=== PATIENT | male | born 1965 | race Caucasian/White ===

== ENCOUNTER → 2017-06-21 | Outpatient (REF) | payer BC ==
[2017-06-21 13:25] LABS: ALBUMIN 3.9 GM/DL (3.2-5.2); ALBUMIN/GLOBULIN RATIO 1.05 (1.00-1.93); ALKALINE PHOSPHATASE 43 U/L (45-117); ALT/SGPT 31 U/L (12-78); ANION GAP 11 MEQ/L (8-16); AST/SGOT 11 U/L (15-37); BILIRUBIN,DIRECT 0.1 MG/DL (0.0-0.2); BILIRUBIN,TOTAL 0.4 MG/DL (0.2-1.0); BLOOD UREA NITROGEN 17 MG/DL (7-18); CALCIUM LEVEL 9.2 MG/DL (8.5-10.1); CARBON DIOXIDE LEVEL 24 MEQ/L (21-32); CHLORIDE LEVEL 106 MEQ/L (98-107); CHOLESTEROL LEVEL 178 MG/DL (<200); CREATININE FOR GFR 1.03 MG/DL (0.70-1.30); GLOMERULAR FILTRATION RATE > 60.0 (>56); GLUCOSE, FASTING 152 MG/DL (70-105); POTASSIUM SERUM 4.2 MEQ/L (3.5-5.1); SODIUM LEVEL 141 MEQ/L (136-145); TOTAL PROTEIN 7.6 GM/DL (6.4-8.2); TRIGLYCERIDES LEVEL 147 MG/DL (<150)
== END ==
LOC: M LABDRAW1 11:42
PROVIDERS: ATTEND Nurse Practitioner Family
DX: E78.2 Mixed hyperlipidemia (principal); I10 Essential (primary) hypertension; E11.9 Type 2 diabetes mellitus without complications

== ENCOUNTER 2017-09-03 13:07 | Day surgery (SDC) | payer BC ==
[~2017-09-03] VITALS: Ht 180.3 cm; Wt 96.2 kg
[~2017-09-03 13:07] MED LIST: ALTA1CAP3 PO; ASPI1TAB PO; FARX1TAB3 PO; METF500T13 PO; ROSU40TA PO
[2017-09-03] MEDS ORDERED: CARV3.12 PO (13:39)
[2017-09-03] MEDS ORDERED: PROPOFOL 200 MG/20 ML VIAL As Ordered ONE (13:58)
[2017-09-03 13:59] VITALS: BP 132/75
[2017-09-03] MEDS ORDERED: NS 1,000 ML IV ONE (14:00)
[2017-09-03] MEDS ORDERED: CARVedilol 3.125 MG TAB PO ONE (14:00)
[2017-09-03] MEDS ORDERED: LIDOCAINE 2% INJ 100 MG/5 ML SDV (FOR ANES.) As Ordered ONE (14:04)
[2017-09-03 15:30] VITALS: BP 124/83
--- NOTE | 2017-09-03 15:31 | ROOR ---
Patient Name: Adam Moura Procedure Date: 09/03/2017 2:38 PM Date of : 1965 Age: 52 Room: [facility] Gender: Male Note Status: Finalized Procedure: Colonoscopy Indications: Hematochezia Providers: Misha Berg MD Referring MD: CARA LAZAR MD Requesting Provider: Medicines: Monitored Anesthesia Care Complications: No immediate complications. Procedure: Pre-Anesthesia Assessment: - Prior to the procedure, a History and Physical was performed, and patient medications and allergies were reviewed. The patient is competent. The risks and benefits of the procedure and the sedation options and risks were discussed with the patient. All questions were answered and informed consent was obtained. Patient identification and proposed procedure were verified by the physician, the nurse and the anesthesiologist in the procedure room. Mental Status Examination: alert and oriented. Airway Examination: normal oropharyngeal airway and neck mobility. Respiratory Examination: clear to auscultation. Prophylactic Antibiotics: The patient does not require prophylactic antibiotics. Prior Anticoagulants: The patient has taken no previous anticoagulant or antiplatelet agents. After reviewing the risks and benefits, the patient was deemed in satisfactory condition to undergo the procedure. The anesthesia plan was to use monitored anesthesia care (MAC). Immediately prior to administration of medications, the patient was re-assessed for adequacy to receive sedatives. The heart rate, respiratory rate, oxygen saturations, blood pressure, adequacy of pulmonary ventilation, and response to care were monitored throughout the procedure. The physical status of the patient was re-assessed after the procedure. The Colonoscope was introduced through the anus and advanced to the terminal ileum, with identification of the appendiceal orifice and IC valve. The colonoscopy was performed without difficulty. The patient tolerated the procedure well. The quality of the bowel preparation was good. The terminal ileum, ileocecal valve, appendiceal orifice, and rectum were photographed. Scope insertion time was 3 minutes. Scope withdrawal time was 9 minutes. The total duration of the procedure was 14 minutes. Findings: The perianal and digital rectal examinations were normal. The terminal ileum appeared normal. A 10 mm polyp was found in the cecum. The polyp was sessile. The polyp was removed with a hot snare. Resection and retrieval were complete. To close a defect after polypectomy, one hemostatic clip was successfully placed. There was no bleeding at the end of the procedure. A 6 mm polyp was found in the ascending colon. The polyp was sessile. The polyp was removed with a cold snare. Resection and retrieval were complete. A 10 mm polyp was found in the transverse colon. The polyp was sessile. The polyp was removed with a hot snare. Resection and retrieval were complete. To close a defect after polypectomy, one hemostatic clip was successfully placed. There was no bleeding at the end of the procedure. Two sessile polyps were found in the descending colon. The polyps were 6 to 8 mm in size. These polyps were removed with a cold biopsy forceps. Resection and retrieval were complete. Non-bleeding external and internal hemorrhoids were found during retroflexion. The hemorrhoids were medium-sized. Impression: - The examined portion of the ileum was normal. - One 10 mm polyp in the cecum, removed with a hot snare. Resected and retrieved. Clip was placed. - One 6 mm polyp in the ascending colon, removed with a cold snare. Resected and retrieved. - One 10 mm polyp in the transverse colon, removed with a hot snare. Resected and retrieved. Clip was placed. - Two 6 to 8 mm polyps in the descending colon, removed with a cold biopsy forceps. Resected and retrieved. - Non-bleeding external and internal hemorrhoids. Recommendation: - Patient has a contact number available for emergencies. The signs and symptoms of potential delayed complications were discussed with the patient. Return to normal activities tomorrow. Written discharge instructions were provided to the patient. - Resume previous diet. - Continue present medications. - Await pathology results. - Repeat colonoscopy in 3 - 5 years for surveillance based on pathology results. - Return to GI clinic as previously scheduled on 09/11/2017 at 8:30 AM. - Return to primary care physician. Misha Berg MD Misha Berg MD 09/03/2017 3:31:39 PM This report has been signed electronically. Number of Addenda: 0 Note Initiated On: 09/03/2017 2:38 PM Estimated Blood Loss: Estimated blood loss was minimal.
== END 2017-09-03 16:06 | disposition home or self-care (01) ==
LOC: M OPP 13:07
PROVIDERS: ATTEND Internal Medicine Gastroenterology
DX: K92.1 Melena (principal); D12.0 Benign neoplasm of cecum; D12.2 Benign neoplasm of ascending colon; D12.3 Benign neoplasm of transverse colon; D12.4 Benign neoplasm of descending colon; K64.8 Other hemorrhoids; K64.4 Residual hemorrhoidal skin tags; I25.10 Atherosclerotic heart disease of native coronary artery without angina pectoris; Z95.5 Presence of coronary angioplasty implant and graft; I25.2 Old myocardial infarction; I10 Essential (primary) hypertension; E78.5 Hyperlipidemia, unspecified; E11.9 Type 2 diabetes mellitus without complications; R06.83 Snoring; F17.210 Nicotine dependence, cigarettes, uncomplicated; Z79.82 Long term (current) use of aspirin; Z79.899 Other long term (current) drug therapy; Z79.84 Long term (current) use of oral hypoglycemic drugs; Z80.41 Family history of malignant neoplasm of ovary

== ENCOUNTER 2018-04-19 19:17 | Emergency (ER) | payer BC ==
[2018-04-19 19:39] LABS: BEDSIDE GLUCOSE 214 MG/DL (70-105)
[2018-04-19 19:53] LABS: BASO # 0.1 10^3/uL (0.0-0.2); BASO % 0.9 % (0.0-1.0); EOS # 0.4 10^3/uL (0.0-0.50); HEMOGLOBIN 16.2 g/dl (13.5-17.5); IMMATURE GRANULOCYTE % 0.2 % (0-3.0); LYMPH # 3.4 10^3/uL (1.5-4.5); LYMPH % 38.8 % (24.0-44.0); MEAN CORPUSCULAR HEMOGLOBIN 29.9 pg (27.0-33.0); MEAN CORPUSCULAR HGB CONC 34.5 g/dl (32.0-36.5); MEAN CORPUSCULAR VOLUME 86.7 fl (80.0-96.0); MONO # 0.6 10^3/uL (0.0-0.8); MONO % 6.7 % (0.0-5.0); NEUTROPHILS # 4.4 10^3/uL (1.8-7.7); NEUTROPHILS % 49.4 % (36.0-66.0); PLATELET COUNT, AUTOMATED 236 10^3/uL (150-450); RED BLOOD COUNT 5.42 10^6/uL (4.30-6.10); RED CELL DISTRIBUTION WIDTH 12.9 % (11.5-14.5); WHITE BLOOD COUNT 8.8 10^3/uL (4.0-10.0)
[2018-04-19] MEDS: NITROGLYCERIN 0.4 MG SUBL TABLET SL ×2 (19:57→20:07)
[2018-04-19] MEDS: ASPIRIN 81 MG CHEW TABLET PO (19:57)
[2018-04-19 20:17] LABS: ALBUMIN 3.9 GM/DL (3.2-5.2); ALBUMIN/GLOBULIN RATIO 0.98 (1.00-1.93); ALKALINE PHOSPHATASE 49 U/L (45-117); ALT/SGPT 27 U/L (12-78); ANION GAP 10 MEQ/L (8-16); AST/SGOT 14 U/L (7-37); BILIRUBIN,DIRECT 0.1 MG/DL (0.0-0.2); BILIRUBIN,TOTAL 0.4 MG/DL (0.2-1.0); BLOOD UREA NITROGEN 16 MG/DL (7-18); CALCIUM LEVEL 8.9 MG/DL (8.5-10.1); CARBON DIOXIDE LEVEL 25 MEQ/L (21-32); CHLORIDE LEVEL 105 MEQ/L (98-107); CPK CREATINE PHOSPHOKINASE 113 U/L (39-308); CREATININE FOR GFR 1.32 MG/DL (0.70-1.30); GLOMERULAR FILTRATION RATE > 60.0 (>56); GLUCOSE, FASTING 200 MG/DL (70-100); SODIUM LEVEL 140 MEQ/L (136-145); TOTAL PROTEIN 7.9 GM/DL (6.4-8.2)
[2018-04-19 20:23] LABS: CK-MB VALUE MASS 1.5 NG/ML (<3.6); FREE T4 0.86 NG/DL (0.76-1.46); MB/CK RELATIVE INDEX 1.32 (< OR =4); NT-PRO BNP 335 PG/ML (<125)
[2018-04-19 20:26] LABS: INR 0.98; PARTIAL THROMBOPLASTIN TIME 30.8 SECONDS (25.4-37.6); PROTHROMBIN TIME 13.1 SECONDS (12.1-14.4)
[2018-04-19 20:29] LABS: D-DIMER QUANT 634.3 ng/ml (<500)
[2018-04-19] MEDS ORDERED: HEPARIN SOD (PORCINE) 5000 UNITS/ML VIAL IV (20:30)
[2018-04-19] MEDS ORDERED: ISOVUE-370 76% 100ML VIAL (Q9967) As Ordered (20:37)
[2018-04-19] MEDS: CLOPIDOGREL 300 MG TAB (PLAVIX) PO (20:43)
[2018-04-19] MEDS: HEPARIN SOD (PORCINE) 5000 UNITS/ML VIAL IV (20:44)
[2018-04-19] MEDS: HEPARIN DRIP 25,000 UNITS in APPROPRIATE DILUENT 1 EA IV (20:50)
== END 2018-04-19 22:17 | disposition short-term general hospital (02) ==
LOC: M ED 19:17
DX: I21.4 Non-ST elevation (NSTEMI) myocardial infarction (principal); I25.10 Atherosclerotic heart disease of native coronary artery without angina pectoris; I10 Essential (primary) hypertension; E11.9 Type 2 diabetes mellitus without complications; Z95.5 Presence of coronary angioplasty implant and graft; Z72.0 Tobacco use; Z79.82 Long term (current) use of aspirin; Z79.84 Long term (current) use of oral hypoglycemic drugs; Z79.899 Other long term (current) drug therapy
CPT/HCPCS: Q9967

== ENCOUNTER → 2018-08-26 | Outpatient (CLI) | payer BC ==
[2018-08-26 09:10] LABS: HEMATOCRIT 45.2 % (42.0-52.0); HEMOGLOBIN 14.8 g/dl (13.5-17.5); MEAN CORPUSCULAR HEMOGLOBIN 29.5 pg (27.0-33.0); MEAN CORPUSCULAR HGB CONC 32.7 g/dl (32.0-36.5); MEAN CORPUSCULAR VOLUME 90.2 fl (80.0-96.0); PLATELET COUNT, AUTOMATED 194 10^3/uL (150-450); RED BLOOD COUNT 5.01 10^6/uL (4.30-6.10); WHITE BLOOD COUNT 6.5 10^3/uL (4.0-10.0)
[2018-08-26 09:42] LABS: ALBUMIN/GLOBULIN RATIO 1.11 (1.00-1.93); ALKALINE PHOSPHATASE 40 U/L (45-117); ALT/SGPT 37 U/L (12-78); ANION GAP 5 MEQ/L (8-16); AST/SGOT 15 U/L (7-37); BILIRUBIN,TOTAL 0.3 MG/DL (0.2-1.0); BLOOD UREA NITROGEN 19 MG/DL (7-18); CALCIUM LEVEL 9.1 MG/DL (8.5-10.1); CARBON DIOXIDE LEVEL 28 MEQ/L (21-32); CHLORIDE LEVEL 106 MEQ/L (98-107); CHOLESTEROL LEVEL 146 MG/DL (<200); CHOLESTEROL RISK RATIO 4.294 (<5); CREATININE FOR GFR 1.15 MG/DL (0.70-1.30); GLOMERULAR FILTRATION RATE > 60.0 (>56); GLUCOSE, FASTING 190 MG/DL (70-100); HDL CHOLESTEROL 34 MG/DL (>40); LDL CHOLESTEROL 76 MG/DL (<100); NON-HDL-C 112 MG/DL; POTASSIUM SERUM 4.8 MEQ/L (3.5-5.1); PROSTATIC SPECIFIC AG MONITOR 0.4 NG/ML (< 4.0); SODIUM LEVEL 139 MEQ/L (136-145); TOTAL PROTEIN 7.6 GM/DL (6.4-8.2); TRIGLYCERIDES LEVEL 178 MG/DL (<150)
[2018-08-26 09:47] LABS: TOTAL 25(OH) VITAMIN D 40.3 NG/ML (30.0-100.0)
[2018-08-26 11:27] LABS: TESTOSTERONE 323 NG/DL (241-827)
[2018-08-26 12:08] LABS: ESTIMATED AVERAGE GLUCOSE 183 MG/DL (60-110)
== END ==
LOC: M LAB 08:06
DX: I10 Essential (primary) hypertension (principal); R53.83 Other fatigue; N40.0 Benign prostatic hyperplasia without lower urinary tract symptoms
CPT/HCPCS: 71046

== ENCOUNTER → 2018-12-30 | Outpatient (REF) | payer BC ==
[~2018-12-30] MED LIST changes: +CARV3.12 PO; -ROSU40TA PO; +ROSU40TA3 PO
[2018-12-30 11:51] LABS: HEMATOCRIT 45.6 % (42.0-52.0); HEMOGLOBIN 14.9 g/dl (13.5-17.5); MEAN CORPUSCULAR HEMOGLOBIN 29.9 pg (27.0-33.0); MEAN CORPUSCULAR HGB CONC 32.7 g/dl (32.0-36.5); MEAN CORPUSCULAR VOLUME 91.4 fl (80.0-96.0); PLATELET COUNT, AUTOMATED 220 10^3/uL (150-450); RED BLOOD COUNT 4.99 10^6/uL (4.30-6.10); WHITE BLOOD COUNT 7.4 10^3/uL (4.0-10.0)
[2018-12-30 12:17] LABS: ALBUMIN 4.2 GM/DL (3.2-5.2); ALT/SGPT 41 U/L (12-78); BILIRUBIN,TOTAL 0.4 MG/DL (0.2-1.0); BLOOD UREA NITROGEN 15 MG/DL (7-18); CALCIUM LEVEL 8.6 MG/DL (8.5-10.1); CARBON DIOXIDE LEVEL 23 MEQ/L (21-32); CHLORIDE LEVEL 108 MEQ/L (98-107); CHOLESTEROL LEVEL 136 MG/DL (<200); CHOLESTEROL RISK RATIO 4.533 (<5); GLOMERULAR FILTRATION RATE > 60.0 (>56); GLUCOSE, FASTING 216 MG/DL (70-100); HDL CHOLESTEROL 30 MG/DL (>40); LDL CHOLESTEROL 42 MG/DL (<100); NON-HDL-C 106 MG/DL; POTASSIUM SERUM 4.3 MEQ/L (3.5-5.1); SODIUM LEVEL 139 MEQ/L (136-145); TESTOSTERONE 219 NG/DL (241-827); TOTAL PROTEIN 7.7 GM/DL (6.4-8.2); TRIGLYCERIDES LEVEL 321 MG/DL (<150)
[2018-12-30 13:01] LABS: HEMOGLOBIN A1c 8.7 %
== END ==
LOC: M LABDRAW1 09:19
PROVIDERS: ATTEND Family Medicine
DX: R53.83 Other fatigue (principal); I10 Essential (primary) hypertension; E11.9 Type 2 diabetes mellitus without complications

== ENCOUNTER → 2019-02-04 | Outpatient (REF) | payer BC ==
[~2019-02-04] MED LIST changes: -ASPI1TAB PO; +ASPI81TA26 PO
[2019-02-04 10:54] LABS: HEMATOCRIT 46.2 % (42.0-52.0); HEMOGLOBIN 15.1 g/dl (13.5-17.5); MEAN CORPUSCULAR HEMOGLOBIN 29.8 pg (27.0-33.0); MEAN CORPUSCULAR HGB CONC 32.7 g/dl (32.0-36.5); MEAN CORPUSCULAR VOLUME 91.3 fl (80.0-96.0); PLATELET COUNT, AUTOMATED 199 10^3/uL (150-450); RED BLOOD COUNT 5.06 10^6/uL (4.30-6.10); WHITE BLOOD COUNT 6.8 10^3/uL (4.0-10.0)
[2019-02-04 11:14] LABS: HEMOGLOBIN A1c 8.6 %
[2019-02-04 11:24] LABS: ALBUMIN 4.2 GM/DL (3.2-5.2); ALT/SGPT 39 U/L (12-78); BILIRUBIN,TOTAL 0.5 MG/DL (0.2-1.0); BLOOD UREA NITROGEN 15 MG/DL (7-18); CALCIUM LEVEL 9.1 MG/DL (8.5-10.1); CARBON DIOXIDE LEVEL 26 MEQ/L (21-32); CHLORIDE LEVEL 107 MEQ/L (98-107); CHOLESTEROL LEVEL 121 MG/DL (<200); CHOLESTEROL RISK RATIO 3.781 (<5); CREATININE FOR GFR 1.06 MG/DL (0.70-1.30); GLOMERULAR FILTRATION RATE > 60.0 (>56); GLUCOSE, FASTING 159 MG/DL (70-100); HDL CHOLESTEROL 32 MG/DL (>40); LDL CHOLESTEROL 63 MG/DL (<100); NON-HDL-C 89 MG/DL; POTASSIUM SERUM 4.4 MEQ/L (3.5-5.1); PROSTATIC SPECIFIC AG MONITOR 0.35 NG/ML (< 4.00); SODIUM LEVEL 140 MEQ/L (136-145); TESTOSTERONE 317 NG/DL (241-827); TOTAL PROTEIN 7.7 GM/DL (6.4-8.2); TRIGLYCERIDES LEVEL 128 MG/DL (<150)
[2019-02-04 11:25] LABS: TOTAL T3 85.6 NG/DL (60.0-181.0)
== END ==
LOC: M LABDRAW1 10:07
PROVIDERS: ATTEND Family Medicine
DX: I10 Essential (primary) hypertension (principal); E29.1 Testicular hypofunction

== ENCOUNTER → 2019-02-11 | Outpatient (REF) | payer BC | LOC: M LABDRAW1 12:01 | PROVIDERS: ATTEND Family Medicine | DX: E03.9 Hypothyroidism, unspecified (principal) ==

== ENCOUNTER → 2019-06-11 | Outpatient (REF) | payer BC ==
[~2019-06-11] MED LIST changes: -ROSU40TA3 PO; +ROSU40TA4 PO
[2019-06-11 13:13] LABS: PROSTATIC SPECIFIC AG MONITOR 0.4 NG/ML (< 4.00); THYROID STIMULATING HORMONE 2.15 uIU/ML (0.358-3.740); THYROXINE (T4) 7.2 UG/DL (4.5-12.0)
[2019-06-11 13:15] LABS: HEMOGLOBIN A1c 7.9 %
[2019-06-11 13:37] LABS: TOTAL T3 88.2 NG/DL (60.0-181.0)
== END ==
LOC: M LABDRAW1 11:55
PROVIDERS: ATTEND Family Medicine
DX: I10 Essential (primary) hypertension (principal); E03.9 Hypothyroidism, unspecified; R53.83 Other fatigue

== ENCOUNTER → 2019-12-16 | Outpatient (REF) | payer BC ==
[2019-12-16 10:18] LABS: HEMATOCRIT 47.9 % (42.0-52.0); MEAN CORPUSCULAR HGB CONC 33.4 g/dl (32.0-36.5); MEAN CORPUSCULAR VOLUME 89.9 fl (80.0-96.0); PLATELET COUNT, AUTOMATED 216 10^3/uL (150-450); RED BLOOD COUNT 5.33 10^6/uL (4.30-6.10); WHITE BLOOD COUNT 6.6 10^3/uL (4.0-10.0)
[2019-12-16 10:33] LABS: ALT/SGPT 46 U/L (12-78); BILIRUBIN,TOTAL 0.7 MG/DL (0.2-1.0); BLOOD UREA NITROGEN 14 MG/DL (7-18); CALCIUM LEVEL 8.9 MG/DL (8.5-10.1); CARBON DIOXIDE LEVEL 27 MEQ/L (21-32); CHLORIDE LEVEL 105 MEQ/L (98-107); CHOLESTEROL LEVEL 126 MG/DL (<200); CHOLESTEROL RISK RATIO 4.064 (<5); CREATININE FOR GFR 1.06 MG/DL (0.70-1.30); GLOMERULAR FILTRATION RATE > 60.0 (>56); GLUCOSE, FASTING 185 MG/DL (70-100); HDL CHOLESTEROL 31 MG/DL (>40); LDL CHOLESTEROL 58 MG/DL (<100); NON-HDL-C 95 MG/DL; POTASSIUM SERUM 4.2 MEQ/L (3.5-5.1); PROSTATIC SPECIFIC AG MONITOR 0.43 NG/ML (< 4.00); SODIUM LEVEL 138 MEQ/L (136-145); TESTOSTERONE 297 NG/DL (241-827); TOTAL PROTEIN 7.4 GM/DL (6.4-8.2); TRIGLYCERIDES LEVEL 184 MG/DL (<150)
== END ==
LOC: M LABDRAW1 08:09
PROVIDERS: ATTEND Family Medicine
DX: I10 Essential (primary) hypertension (principal); R53.83 Other fatigue; N40.0 Benign prostatic hyperplasia without lower urinary tract symptoms

== ENCOUNTER → 2020-06-24 | Outpatient (CLI) | payer BC ==
[2020-06-24 11:15] LABS: HEMOGLOBIN A1c 7.5 %
[2020-06-24 11:46] LABS: THYROID STIMULATING HORMONE 0.509 uIU/ML (0.358-3.740)
== END ==
LOC: M PLALAB 08:01
PROVIDERS: ATTEND Family Medicine
DX: I10 Essential (primary) hypertension (principal); E11.9 Type 2 diabetes mellitus without complications; E29.1 Testicular hypofunction

== ENCOUNTER 2020-09-20 17:04 | Emergency (ER) | payer BC ==
[~2020-09-20] VITALS: Ht 177.8 cm; Wt 97.5 kg
[2020-09-20] MEDS ORDERED: CLOP75TA2 (17:17)
[2020-09-20] MEDS ORDERED: ASPIRIN 81 MG CHEW TABLET PO ONE (17:30)
[2020-09-20] MEDS ORDERED: HEPARIN DRIP 25,000 UNITS in IV 1 EA IV SCH (17:35)
[2020-09-20] MEDS ORDERED: HEPARIN SOD (PORCINE) 5000UNITS/ML 1ML VIAL/SYRINGE IV ONE (17:45)
[2020-09-20 17:54] LABS: BASO % 0.6 % (0.0-1.0); BLOOD UREA NITROGEN 14 MG/DL (7-18); CALCIUM LEVEL 8.8 MG/DL (8.5-10.1); CARBON DIOXIDE LEVEL 28 MEQ/L (21-32); CHLORIDE LEVEL 104 MEQ/L (98-107); CREATININE FOR GFR 1.08 MG/DL (0.70-1.30); EOS # 0.3 10^3/uL (0.0-0.5); GLOMERULAR FILTRATION RATE > 60.0 (>56); GLUCOSE, FASTING 277 MG/DL (70-100); HEMATOCRIT 44.2 % (42.0-52.0); HEMOGLOBIN 14.2 g/dl (13.5-17.5); LYMPH # 2.6 10^3/uL (1.5-5.0); LYMPH % 37.6 % (24.0-44.0); MEAN CORPUSCULAR HEMOGLOBIN 28.3 pg (27.0-33.0); MEAN CORPUSCULAR HGB CONC 32.1 g/dl (32.0-36.5); MEAN CORPUSCULAR VOLUME 88.2 fl (80.0-96.0); MONO # 0.6 10^3/uL (0.0-0.8); MONO % 8.6 % (0.0-5.0); NEUTROPHILS # 3.3 10^3/uL (1.5-8.5); NEUTROPHILS % 48.9 % (36.0-66.0); PLATELET COUNT, AUTOMATED 211 10^3/uL (150-450); RED BLOOD COUNT 5.01 10^6/uL (4.30-6.10); SODIUM LEVEL 138 MEQ/L (136-145); WHITE BLOOD COUNT 6.8 10^3/uL (4.0-10.0)
[2020-09-20 18:06] LABS: INR 0.94; PARTIAL THROMBOPLASTIN TIME 29.2 SECONDS (24.2-38.5); PROTHROMBIN TIME 12.8 SECONDS (12.5-14.3)
[2020-09-20 18:13] LABS: CK-MB VALUE MASS 5.6 NG/ML (<3.6); CPK CREATINE PHOSPHOKINASE 129 U/L (39-308); MB/CK RELATIVE INDEX 4.34 (< OR =4)
--- NOTE | 2020-09-20 18:32 | REP ---
INDICATION: CHEST PAIN. COMPARISON: Comparison chest x-ray August 26, 2018. TECHNIQUE: Portable upright AP chest radiograph. FINDINGS: Heart size is borderline. The lungs are symmetrically aerated and free of infiltrate. Pulmonary vasculature is not increased. The pleural angles are sharp. Monitoring electrodes are seen.. No significant bony abnormality is appreciated. IMPRESSION: Borderline heart size. Otherwise no acute disease.. <Electronically signed by Donald Khan > 09/20/20 [id number]
[2020-09-20 20:36] VITALS: BP 125/63
--- NOTE | 2020-09-21 05:55 | ECGEPIP ---
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
== END 2020-09-20 20:40 | disposition short-term general hospital (02) ==
LOC: M ED 17:04
DX: I21.4 Non-ST elevation (NSTEMI) myocardial infarction (principal); R00.1 Bradycardia, unspecified; I25.10 Atherosclerotic heart disease of native coronary artery without angina pectoris; E11.9 Type 2 diabetes mellitus without complications; I10 Essential (primary) hypertension; E78.5 Hyperlipidemia, unspecified; Z95.5 Presence of coronary angioplasty implant and graft; F17.200 Nicotine dependence, unspecified, uncomplicated; F17.290 Nicotine dependence, other tobacco product, uncomplicated; Z82.49 Family history of ischemic heart disease and other diseases of the circulatory system; Z79.82 Long term (current) use of aspirin; Z79.84 Long term (current) use of oral hypoglycemic drugs; Z79.899 Other long term (current) drug therapy
CPT/HCPCS: 71045; 80048; 82550; 82553; 84484; 85025; 85610; 85730; 87631; 93005; 93041; 94760; 99285; J1644

== ENCOUNTER → 2020-11-15 | Outpatient (CLI) | payer BC ==
[~2020-11-15] MED LIST changes: +CLOP75TA2
[2020-11-15 11:01] LABS: BASO # 0.1 10^3/uL (0.0-0.2); EOS # 0.4 10^3/uL (0.0-0.5); EOS % 5.8 % (0.0-3.0); HEMATOCRIT 42.6 % (42.0-52.0); HEMOGLOBIN 13.4 g/dl (13.5-17.5); LYMPH # 2.3 10^3/uL (1.5-5.0); LYMPH % 32.8 % (24.0-44.0); MEAN CORPUSCULAR HEMOGLOBIN 27.6 pg (27.0-33.0); MEAN CORPUSCULAR HGB CONC 31.5 g/dl (32.0-36.5); MEAN CORPUSCULAR VOLUME 87.7 fl (80.0-96.0); MONO # 0.5 10^3/uL (0.0-0.8); MONO % 7.4 % (0.0-5.0); NEUTROPHILS # 3.7 10^3/uL (1.5-8.5); NEUTROPHILS % 52.7 % (36.0-66.0); PLATELET COUNT, AUTOMATED 220 10^3/uL (150-450); RED BLOOD COUNT 4.86 10^6/uL (4.30-6.10)
[2020-11-15 11:59] LABS: CREATININE FOR GFR 1.38 MG/DL (0.70-1.30); GLOMERULAR FILTRATION RATE 57.2 (>56); POTASSIUM SERUM 4.5 MEQ/L (3.5-5.1)
[2020-11-15 12:00] LABS: ALBUMIN 3.9 GM/DL (3.2-5.2); BILIRUBIN,TOTAL 0.4 MG/DL (0.2-1.0); CALCIUM LEVEL 9.1 MG/DL (8.5-10.1); CHOLESTEROL RISK RATIO 3.5 (<5); TOTAL PROTEIN 7.6 GM/DL (6.4-8.2)
== END ==
LOC: M LAB 09:51
PROVIDERS: ATTEND Physician Assistant
DX: E78.2 Mixed hyperlipidemia (principal); I10 Essential (primary) hypertension

== ENCOUNTER → 2020-12-08 | Outpatient (CLI) | payer BC ==
[2020-12-08 10:22] LABS: CREATININE FOR GFR 1.34 MG/DL (0.70-1.30); GLOMERULAR FILTRATION RATE 59.1 (>56)
== END ==
LOC: M LAB 08:50
PROVIDERS: ATTEND Surgery Vascular Surgery
DX: I70.213 Atherosclerosis of native arteries of extremities with intermittent claudication, bilateral legs (principal)

== ENCOUNTER → 2020-12-08 | Outpatient (CLI) | payer BC ==
[2020-12-08 09:54] LABS: HEMATOCRIT 46.2 % (42.0-52.0); HEMOGLOBIN 14.9 g/dl (13.5-17.5); MEAN CORPUSCULAR HEMOGLOBIN 28.3 pg (27.0-33.0); MEAN CORPUSCULAR HGB CONC 32.3 g/dl (32.0-36.5); MEAN CORPUSCULAR VOLUME 87.8 fl (80.0-96.0); PLATELET COUNT, AUTOMATED 216 10^3/uL (150-450); RED BLOOD COUNT 5.26 10^6/uL (4.30-6.10); WHITE BLOOD COUNT 6.4 10^3/uL (4.0-10.0)
[2020-12-08 10:36] LABS: ALBUMIN 4.4 GM/DL (3.2-5.2); ALT/SGPT 33 U/L (12-78); BILIRUBIN,TOTAL 0.3 MG/DL (0.2-1.0); BLOOD UREA NITROGEN 19 MG/DL (7-18); CARBON DIOXIDE LEVEL 27 MEQ/L (21-32); CHLORIDE LEVEL 107 MEQ/L (98-107); CREATININE FOR GFR 1.32 MG/DL (0.70-1.30); GLOMERULAR FILTRATION RATE > 60.0 (>56); GLUCOSE, FASTING 162 MG/DL (70-100); POTASSIUM SERUM 4.6 MEQ/L (3.5-5.1); PROSTATIC SPECIFIC AG MONITOR 0.48 NG/ML (< 4.00); SODIUM LEVEL 140 MEQ/L (136-145); TESTOSTERONE 233 NG/DL (241-827); THYROID STIMULATING HORMONE 0.665 uIU/ML (0.358-3.740); TOTAL 25(OH) VITAMIN D 26.6 NG/ML (30.0-100.0); TOTAL PROTEIN 8.3 GM/DL (6.4-8.2)
== END ==
LOC: M LAB 08:52
PROVIDERS: ATTEND Family Medicine
DX: R53.83 Other fatigue (principal); I10 Essential (primary) hypertension; E11.9 Type 2 diabetes mellitus without complications; N40.0 Benign prostatic hyperplasia without lower urinary tract symptoms

== ENCOUNTER → 2020-12-08 | Outpatient (CLI) | payer BC ==
[2020-12-08 09:54] LABS: BASO # 0.1 10^3/uL (0.0-0.2); BASO % 0.9 % (0.0-1.0); EOS # 0.3 10^3/uL (0.0-0.5); EOS % 4.9 % (0.0-3.0); HEMATOCRIT 45.7 % (42.0-52.0); HEMOGLOBIN 14.5 g/dl (13.5-17.5); LYMPH # 2.3 10^3/uL (1.5-5.0); LYMPH % 36.2 % (24.0-44.0); MEAN CORPUSCULAR HEMOGLOBIN 27.6 pg (27.0-33.0); MEAN CORPUSCULAR HGB CONC 31.7 g/dl (32.0-36.5); MEAN CORPUSCULAR VOLUME 86.9 fl (80.0-96.0); MONO # 0.5 10^3/uL (0.0-0.8); MONO % 7.1 % (2.0-8.0); NEUTROPHILS # 3.3 10^3/uL (1.5-8.5); NEUTROPHILS % 50.6 % (36.0-66.0); PLATELET COUNT, AUTOMATED 228 10^3/uL (150-450); RED BLOOD COUNT 5.26 10^6/uL (4.30-6.10); WHITE BLOOD COUNT 6.5 10^3/uL (4.0-10.0)
[2020-12-08 10:34] LABS: ALBUMIN 4.5 GM/DL (3.2-5.2); ALT/SGPT 32 U/L (12-78); BILIRUBIN,TOTAL 0.3 MG/DL (0.2-1.0); BLOOD UREA NITROGEN 20 MG/DL (7-18); CARBON DIOXIDE LEVEL 27 MEQ/L (21-32); CHLORIDE LEVEL 107 MEQ/L (98-107); CREATININE FOR GFR 1.28 MG/DL (0.70-1.30); GLOMERULAR FILTRATION RATE > 60.0 (>56); GLUCOSE, FASTING 165 MG/DL (70-100); NT-PRO BNP 123 PG/ML (<125); POTASSIUM SERUM 4.7 MEQ/L (3.5-5.1); SODIUM LEVEL 139 MEQ/L (136-145); TOTAL PROTEIN 8.2 GM/DL (6.4-8.2)
== END ==
LOC: M LAB 08:47
PROVIDERS: ATTEND Physician Assistant
DX: R06.83 Snoring (principal)
CPT/HCPCS: 80053; 83880; 85027; G0399

== ENCOUNTER → 2020-12-17 | Outpatient (CLI) | payer BC ==
[~2020-12-17] MED LIST changes: +ISOVUE-370 76% 100ML VIAL As Ordered ONE
--- NOTE | 2020-12-17 10:26 | REP ---
INDICATION: ATHEROSCLEROSIS, AAA CT 1ST US 2ND COMPARISON: None. TECHNIQUE: CT angiogram of the abdomen and pelvis was performed with intravenous administration of 100 cc of Isovue 370, without oral contrast. 3D MIP reconstruction images performed. FINDINGS: Abdominal aorta: There is an infrarenal aneurysm of the distal abdominal aorta measuring 4.5 x 4.7 cm, with a craniocaudal length of approximately 6.5 cm. It terminates at the aortic bifurcation. The superior aspect is approximately 5.5 cm from the lowest main renal artery on the left. At the origin of the aneurysm superiorly with the AP diameter is 3.0 cm, there is moderate circumferential soft plaque, the patent lumen centrally measures 1.5 cm in diameter. Relatively mild amount of soft plaque is seen circumferentially at the widest point of the aneurysm. Bilateral common iliac artery stents are present. On the right patent flow is seen throughout the stent. There is mild partially calcified plaquing in the distal right common iliac artery with no stenosis. There is mild diffuse plaquing and narrowing of the right external iliac artery. The right common femoral artery demonstrates mild diffuse plaquing and narrowing. There is occlusion of the proximal right superficial femoral artery with a patent right profunda. On the left the common iliac artery stent demonstrates a focal moderate amount of plaque in the distal aspect with moderate stenosis. The distal left common iliac artery is ectatic measuring 1.7 cm in diameter. There is a patent stent in the proximal left external iliac artery. The more distal left external iliac artery demonstrates mild diffuse plaquing and narrowing as does the left common femoral artery. There is occlusion of the proximal left superficial femoral artery, the left profunda is patent. The celiac and superior mesenteric arteries are patent with no significant stenosis. The inferior mesenteric artery is occluded. There is no evidence of renal artery stenosis bilaterally. Lung bases: Unremarkable. Liver: There is diffuse fatty infiltration of the liver. There is a hepatomegaly with the length of the liver 20.7 cm. Gallbladder: Unremarkable. Spleen: Normal. Adrenals: Normal. Pancreas: Normal. Kidneys: An exophytic 1.8 cm cyst is noted of the mid left kidney. Small and large bowel: Unremarkable. Free fluid: None. Adenopathy: None. Appendix: Not inflamed. Pelvis: No mass. Osseous structures: There are degenerative changes of the spine without compression deformity.. IMPRESSION: Infrarenal distal abdominal aortic aneurysm 4.5 x 4.7 cm, craniocaudal length approximately 6.5 cm as discussed in detail above. 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 Moderate focal stenosis in the distal aspect of the left common iliac artery stent. Occlusion inferior mesenteric artery. <Electronically signed by Naif Lind > 12/17/20 1022
--- NOTE | 2020-12-17 10:57 | REP ---
INDICATION: ATHEROSCLEROSIS, AAA CT 1ST US 2ND COMPARISON: None. TECHNIQUE: Real time lind scale and Duplex Doppler evaluation of the bilateral lower extremity arterial vasculature using linear high frequency transducer. FINDINGS: Lind scale and duplex doppler images demonstrate bilateral common iliac artery stents which are patent. There is a left external iliac artery stent which is patent. There is occlusion of the proximal superficial femoral arteries bilaterally. Distal superficial femoral arteries demonstrate revascularization bilaterally. Proximal right popliteal artery is severely stenotic as is the proximal anterior tibial artery, with trickle flow within. There is reversal of flow in the distal right anterior tibial artery. Right posterior tibial artery is the only vascular supply to the right foot. On the left the anterior and posterior tibial arteries appear to supply the foot. There are diffuse monophasic waveforms bilaterally. KYLE right 0.76, left 0.69. Peak systolic velocities (cm/sec) Distal abdominal aorta: 130 Common iliac artery: Right 89; left 95 External iliac artery: Right 68; left 118 Common femoral artery: Right 129; Left 101 Profunda femoris: Right 207; Left 82 SFA (proximal): Right occluded; Left trickle flow/occluded SFA (mid): Right trickle flow 15; Left occluded SFA (distal): Right 46; Left 19 Popliteal artery: Right 24; Left 22 PORTILLO (prox.): Right 8; Left 35 Tibioperoneal trunk: Right 32; Left 24 DRAWING FRAME TENDER (prox.): Right 35; Left 548 DRAWING FRAME TENDER (distal): Right 45; Left 34 PORTILLO (distal): Right 5, reversed; Left 23 IMPRESSION: Occlusion of proximal superficial femoral arteries bilaterally with reconstitution of the bilateral distal superficial femoral arteries. Severe stenosis proximal right popliteal artery. Severe stenosis proximal right anterior tibial artery, with reversal of flow in the distal anterior tibial artery. <Electronically signed by Naif Lind > 12/17/20 0713
== END ==
LOC: M RAD 08:30
PROVIDERS: ATTEND Surgery Vascular Surgery
DX: I70.213 Atherosclerosis of native arteries of extremities with intermittent claudication, bilateral legs (principal); I71.4 Abdominal aortic aneurysm, without rupture
CPT/HCPCS: 74174; 93925; 93979; Q9967

== ENCOUNTER → 2021-02-07 | Outpatient (CLI) | payer BC ==
[~2021-02-07] MED LIST changes: +ALPR0.5T3 PO; -ISOVUE-370 76% 100ML VIAL As Ordered ONE; +LEVO112T2 PO; +LISI-898 PO
[2021-02-07 09:43] LABS: HEMATOCRIT 47.9 % (42.0-52.0); HEMOGLOBIN 15.1 g/dl (13.5-17.5); MEAN CORPUSCULAR HEMOGLOBIN 28.3 pg (27.0-33.0); MEAN CORPUSCULAR HGB CONC 31.5 g/dl (32.0-36.5); MEAN CORPUSCULAR VOLUME 89.9 fl (80.0-96.0); PLATELET COUNT, AUTOMATED 198 10^3/uL (150-450); RED BLOOD COUNT 5.33 10^6/uL (4.30-6.10); WHITE BLOOD COUNT 5.9 10^3/uL (4.0-10.0)
[2021-02-07 11:12] LABS: ALBUMIN 4.2 GM/DL (3.2-5.2); ALT/SGPT 36 U/L (12-78); BILIRUBIN,TOTAL 0.5 MG/DL (0.2-1.0); BLOOD UREA NITROGEN 15 MG/DL (7-18); CALCIUM LEVEL 9.6 MG/DL (8.5-10.1); CARBON DIOXIDE LEVEL 25 MEQ/L (21-32); CHLORIDE LEVEL 106 MEQ/L (98-107); CHOLESTEROL LEVEL 127 MG/DL (<200); CHOLESTEROL RISK RATIO 3.432 (<5); CREATININE FOR GFR 1.04 MG/DL (0.70-1.30); GLOMERULAR FILTRATION RATE > 60.0 (>56); GLUCOSE, FASTING 191 MG/DL (70-100); HDL CHOLESTEROL 37 MG/DL (>40); LDL CHOLESTEROL 51 MG/DL (<100); NON-HDL-C 90 MG/DL; POTASSIUM SERUM 4.5 MEQ/L (3.5-5.1); SODIUM LEVEL 140 MEQ/L (136-145); THYROID STIMULATING HORMONE 0.465 uIU/ML (0.358-3.740); TOTAL PROTEIN 8.1 GM/DL (6.4-8.2); TRIGLYCERIDES LEVEL 195 MG/DL (<150)
[2021-02-07 11:21] LABS: TESTOSTERONE 324 NG/DL (241-827)
[2021-02-07 13:27] LABS: HEMOGLOBIN A1c 7.4 %
== END ==
LOC: M LAB 08:54
PROVIDERS: ATTEND Family Medicine
DX: I10 Essential (primary) hypertension (principal); R53.83 Other fatigue; E03.9 Hypothyroidism, unspecified

== ENCOUNTER → 2021-02-09 | Outpatient (CLI) | payer BC ==
[~2021-02-09] MED LIST changes: +ISOVUE-300 61% 50ML VIAL As Ordered ONE; +LIDOCAINE 1% MDV 20ML VIAL As Ordered ONE; +MIDAZOLAM INJ 2MG/2ML VIAL (J2250 PER 1MG) As Ordered ONE; +fentaNYL 100 MCG/2 ML INJECTION (J3010) As Ordered ONE
--- NOTE | 2021-02-09 12:13 | ROOPDOC ---
[facility] Report Of Operation Report of Operation DATE OF PROCEDURE: 02/09/21 PREPROCEDURE DIAGNOSES: Atherosclerosis of the [place] arteries with lifestyle limiting claudication left lower extremity POSTPROCEDURE DIAGNOSES: Same PROCEDURE: 1. Ultrasound-guided access right common femoral artery 2. Selection view right iliac artery 3. Aortoiliofemoral arteriogram 4. Oblique views left iliac artery 5. Selection left common femoral artery with left lower extremity runoff 6. VBX balloon expandable covered stent placement left proximal common iliac artery to proximal external iliac artery 7. Angioplasty right distal common iliac artery and external iliac artery with 8 x 39 VBX balloon 8. Completion arteriograms bilateral iliac arteries 9. Mynx closure right common femoral artery SURGEON: Perico Marley MD ANESTHESIA: Local anesthesia 7 mL lidocaine. Moderate intravenous conscious sedation was supervised by Dr. Marley. The patient was independent only monitored by registered nurse assigned to the Department of radiology using automated blood pressure, EKG, and pulse oximetry. The detailed sedation record is probably started in the hospital information system. The following is a brief sedation record: Start time 10:57, stop time 11:56, Versed 1 mg IV, fentanyl 25 g IV, heparin 3000 units IV. 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 Risks benefits alternatives to an arteriogram potential intervention were explained to the patient. Informed consent was obtained. INTERPRETATION: 1. Patient has a stable infrarenal aortic aneurysm, small, ectatic. There is good flow into the right iliac artery pre-existing stent, but distal to this at the hypogastric there is a stenosis of approximately 50% in the [place] vessel. The external iliac artery is patent distal to this but then has a focal stenosis in the midportion of about 40%. The proximal common femoral artery is mildly aneurysmal, and care was taken to access the artery distal to the aneurysmal segment. The left common iliac artery is mildly stenotic proximally in the pre- existing stent, then there is an aneurysmal portion between the stent and a more distal stent that covers the hypogastric which is occluded. There is about a 3 cm gap between the 2 stents with an aneurysmal portion between them. The exte rnal iliac artery is widely patent and the common femoral artery has a mildly aneurysmal dilation proximally and then is normal and patent distal to this. There is a mild dissection in the aneurysmal portion, not flow-limiting. 2. After selection of the left common femoral artery, we note good inflow into the profunda which provides a very large sturdy collateral down to the above- knee popliteal artery which is ectatic and calcified but has good flow and no flow-limiting stenoses. The left SFA is occluded at the origin and reconstitutes at the above-knee popliteal artery from the profunda collateral and additional collaterals. He has 3 vessel runoff to the tibials, although we can't follow them all the way to the foot due to washout of contrast from occlusion of the SFA. I suspect his tibial runoff is fairly good due to the rapid outflow of contrast through all 3 vessels proximally, but we cannot confirm this with imaging. 3. Attempts to cross the left superficial femoral artery were reported. Following this, there was no extravasation of contrast at the left superficial femoral artery. 4. After placing balloon expandable covered stents from the proximal external iliac artery through 2 the proximal common iliac artery origin, there is widely patent flow with no endoleak into the aneurysmal segment of the left iliac artery and improved flow into the collaterals supplying the left lower extremity. 5. After angioplasty of the right common iliac artery and external iliac artery, there is improved flow through the right iliac system with no extravasation dissection AV fistula or embolization noted. REPORT OF OPERATION: Patient was brought to the angiographic suite in stable condition. His bilateral groins were prepped and draped in a sterile fashion. A timeout was performed. Local anesthesia was administered to the skin and subcutaneous tissue over the right common femoral artery. A microneedle was used to access the artery under ultrasound guidance. A wire was passed through this access and the needle was removed. A 4 [place] sheath was placed and flushed with saline. The micro-wire for the 4 [place] sheath did not easily passed into the right common iliac artery and Selecting the right hypogastric artery, therefore a quick injection of contrast through the sheath was performed to make sure we do not have a more proximal iliac artery occlusion. We found that the right iliac artery was patent, but did have some stenosis at the bifurcation into the hypogastric in the external iliac artery. We then navigated Glidewire and flushing catheter and the distal aorta. Aortoiliofemoral arteriograms were performed, please see interpretation above. Next, we spent quite a bit of time going up and over the bifurcation. This was very challenging due to the common iliac artery stents, but eventually we're able to navigate the wire into the left iliac system and oblique views confirmed there was stenosis distal to the second stents as well as a large aneurysmal segment between the existing stents. We then navigated down to the left common femoral artery and a left lower extremity runoff was performed, please see interpretation above. We tried to cross through the occlusion in the left common femoral artery. I was able to navigate the wire only 3 cm before I could not cross any further. This was aborted. Arteriogram confirmed there was no extravasation from our efforts to cross. We then exchanged the wire through catheter for an Amplatz superstiff wire. We exchanged the sheath over the wire for a 7 x 45 cm destination sheath, with the tip of the sheath in the left iliac artery. We then advanced an 8 x 39 VBX balloon expandable stent into the proximal external iliac artery and this was to play without incident. With a 1 cm overlap, we deployed a second 8 x 39 balloon expandable covered stents to exclude the aneurysm. We then still had some irregularity to the flow proximal to this due to some outpouchings in the [place] artery beyond the existing bare-metal stents, so we extended the covered stents with an 8 x 29 to the origin of the left common iliac artery. Following this there is widely patent rapid flow with no aneurysmal segments filling, no endoleaks. Next, we retracted the sheath into the right common femoral artery. We angioplastied the right distal common iliac artery and the external iliac artery with the 8 x 29 VBX balloon. Following this, there is a marked improvement inflow through the right iliac system. We did not place additional stents at this time. No extravasation dissection embolization was noted. There is improved pulse in the right common femoral artery. We then exchanged the 7 [place] sheath for a short 7 [place] sheath over the wire and placed Mynx closure device with good hemostasis. Pressure was held and sterile dressings were applied. The patient was taken to recovery in stable condition. He tolerated the procedure and the sedation well. ESTIMATED BLOOD LOSS: Approximately 5 mL. COMPLICATIONS: None PLAN: Okay to resume home diet and medications including Plavix. We like to see the patient back in a week to check his perfusion and groin access site. No lifting greater than 5 pounds, no strenuous exercise for 3 days. We appreciate the opportunity to participate in the care of this patient. PERICO MARLEY MD February 09, 2021 12:12
[2021-02-09 16:08] VITALS: BP 160/90
== END ==
LOC: M IRPRO 08:12
PROVIDERS: ATTEND Surgery Vascular Surgery
DX: I70.212 Atherosclerosis of native arteries of extremities with intermittent claudication, left leg (principal); I70.92 Chronic total occlusion of artery of the extremities; I72.3 Aneurysm of iliac artery

== ENCOUNTER → 2021-04-21 | Outpatient (CLI) | payer BC, OTHER ==
[~2021-04-21] MED LIST changes: -ISOVUE-300 61% 50ML VIAL As Ordered ONE; -LIDOCAINE 1% MDV 20ML VIAL As Ordered ONE; -MIDAZOLAM INJ 2MG/2ML VIAL (J2250 PER 1MG) As Ordered ONE; -fentaNYL 100 MCG/2 ML INJECTION (J3010) As Ordered ONE
[2021-04-21 16:16] LABS: BLOOD UREA NITROGEN 15 MG/DL (7-18)
[2021-04-22 10:15] LABS: CREATININE FOR GFR 1.15 MG/DL (0.70-1.30); GLOMERULAR FILTRATION RATE > 60.0 (>56)
== END ==
LOC: M LAB 15:28
PROVIDERS: ATTEND Surgery Vascular Surgery
DX: I70.213 Atherosclerosis of native arteries of extremities with intermittent claudication, bilateral legs (principal)

== ENCOUNTER → 2021-04-26 | Outpatient (CLI) | payer BC, OTHER ==
[~2021-04-26] MED LIST changes: +ISOVUE-370 76% 100ML VIAL As Ordered ONE; -LISI-898 PO; +LISI5TAB11 PO
== END ==
LOC: M RAD 14:50
PROVIDERS: ATTEND Surgery Vascular Surgery
DX: I70.213 Atherosclerosis of native arteries of extremities with intermittent claudication, bilateral legs (principal); I71.4 Abdominal aortic aneurysm, without rupture; Z95.820 Peripheral vascular angioplasty status with implants and grafts; K55.1 Chronic vascular disorders of intestine
CPT/HCPCS: 75635; Q9967

== ENCOUNTER → 2021-09-14 | Outpatient (CLI) | payer OTHER ==
[~2021-09-14] MED LIST changes: -ISOVUE-370 76% 100ML VIAL As Ordered ONE; +LISI-898 PO; -LISI5TAB11 PO
[2021-09-14 09:39] LABS: HEMATOCRIT 46.4 % (42.0-52.0); HEMOGLOBIN 14.9 g/dl (13.5-17.5); MEAN CORPUSCULAR HGB CONC 32.1 g/dl (32.0-36.5); MEAN CORPUSCULAR VOLUME 90.3 fl (80.0-96.0); PLATELET COUNT, AUTOMATED 209 10^3/uL (150-450); RED BLOOD COUNT 5.14 10^6/uL (4.30-6.10); WHITE BLOOD COUNT 6.5 10^3/uL (4.0-10.0)
[2021-09-14 10:02] LABS: HEMOGLOBIN A1c 7.4 %
[2021-09-14 10:09] LABS: ALT/SGPT 25 U/L (12-78); BILIRUBIN,TOTAL 0.4 MG/DL (0.2-1.0); BLOOD UREA NITROGEN 16 MG/DL (7-18); CALCIUM LEVEL 9.1 MG/DL (8.5-10.1); CARBON DIOXIDE LEVEL 27 MEQ/L (21-32); CHLORIDE LEVEL 108 MEQ/L (98-107); CHOLESTEROL LEVEL 106 MG/DL (<200); CHOLESTEROL RISK RATIO 3.419 (<5); CREATININE FOR GFR 1.11 MG/DL (0.70-1.30); GLOMERULAR FILTRATION RATE > 60.0 (>56); GLUCOSE, FASTING 148 MG/DL (70-100); HDL CHOLESTEROL 31 MG/DL (>40); LDL CHOLESTEROL 43 MG/DL (<100); NON-HDL-C 75 MG/DL; POTASSIUM SERUM 4.7 MEQ/L (3.5-5.1); PROSTATIC SPECIFIC AG MONITOR 0.46 NG/ML (< 4.00); SODIUM LEVEL 140 MEQ/L (136-145); THYROID STIMULATING HORMONE 0.729 uIU/ML (0.358-3.740); TOTAL PROTEIN 7.8 GM/DL (6.4-8.2); TRIGLYCERIDES LEVEL 159 MG/DL (<150)
[2021-09-14 10:10] LABS: TESTOSTERONE 237 NG/DL (241-827)
== END ==
LOC: M LAB 08:51
PROVIDERS: ATTEND Family Medicine
DX: I10 Essential (primary) hypertension (principal); E11.9 Type 2 diabetes mellitus without complications; R53.83 Other fatigue

== ENCOUNTER → 2021-11-24 | Outpatient (CLI) | payer OTHER ==
[~2021-11-24] MED LIST changes: -LISI-898 PO; +LISI5TAB11 PO
[2021-11-24 08:54] LABS: HEMOGLOBIN A1c 7.3 %
[2021-11-24 09:00] LABS: GLUCOSE, FASTING 136 MG/DL (70-100)
[2021-11-24 11:46] LABS: TESTOSTERONE 318 NG/DL (241-827)
== END ==
LOC: M LAB 07:47
PROVIDERS: ATTEND Family Medicine
DX: I10 Essential (primary) hypertension (principal); E11.9 Type 2 diabetes mellitus without complications; R53.83 Other fatigue

== ENCOUNTER → 2022-02-16 | Outpatient (CLI) | payer OTHER ==
[2022-02-16 09:30] LABS: HEMATOCRIT 47.8 % (42.0-52.0); HEMOGLOBIN 15.7 g/dl (13.5-17.5); MEAN CORPUSCULAR HEMOGLOBIN 29.1 pg (27.0-33.0); MEAN CORPUSCULAR HGB CONC 32.8 g/dl (32.0-36.5); MEAN CORPUSCULAR VOLUME 88.7 fl (80.0-96.0); PLATELET COUNT, AUTOMATED 173 10^3/uL (150-450); RED BLOOD COUNT 5.39 10^6/uL (4.30-6.10); WHITE BLOOD COUNT 4.7 10^3/uL (4.0-10.0)
[2022-02-16 09:51] LABS: HEMOGLOBIN A1c 6.9 %
[2022-02-16 10:12] LABS: ALBUMIN 4.1 GM/DL (3.2-5.2); ALT/SGPT 23 U/L (12-78); BILIRUBIN,TOTAL 0.5 MG/DL (0.2-1.0); BLOOD UREA NITROGEN 14 MG/DL (7-18); CALCIUM LEVEL 8.9 MG/DL (8.5-10.1); CARBON DIOXIDE LEVEL 25 MEQ/L (21-32); CHLORIDE LEVEL 108 MEQ/L (98-107); CHOLESTEROL LEVEL 88 MG/DL (<200); CHOLESTEROL RISK RATIO 2.933 (<5); CREATININE FOR GFR 1.17 MG/DL (0.70-1.30); GLOMERULAR FILTRATION RATE > 60.0 (>56); GLUCOSE, FASTING 121 MG/DL (70-100); HDL CHOLESTEROL 30 MG/DL (>40); LDL CHOLESTEROL 27 MG/DL (<100); NON-HDL-C 58 MG/DL; POTASSIUM SERUM 4.4 MEQ/L (3.5-5.1); PROSTATIC SPECIFIC AG MONITOR 0.78 NG/ML (< 4.00); SODIUM LEVEL 138 MEQ/L (136-145); TOTAL PROTEIN 7.4 GM/DL (6.4-8.2); TRIGLYCERIDES LEVEL 154 MG/DL (<150)
[2022-02-16 10:17] LABS: TESTOSTERONE 215 NG/DL (241-827)
== END ==
LOC: M LAB 08:18
PROVIDERS: ATTEND Family Medicine
DX: R53.83 Other fatigue (principal); E03.9 Hypothyroidism, unspecified; I10 Essential (primary) hypertension

== ENCOUNTER → 2022-05-04 | Outpatient (CLI) | payer OTHER ==
[2022-05-04 09:18] LABS: HEMATOCRIT 52.2 % (42.0-52.0); HEMOGLOBIN 16.9 g/dl (13.5-17.5); MEAN CORPUSCULAR HEMOGLOBIN 28.9 pg (27.0-33.0); MEAN CORPUSCULAR HGB CONC 32.4 g/dl (32.0-36.5); MEAN CORPUSCULAR VOLUME 89.4 fl (80.0-96.0); PLATELET COUNT, AUTOMATED 180 10^3/uL (150-450); RED BLOOD COUNT 5.84 10^6/uL (4.30-6.10); WHITE BLOOD COUNT 5.9 10^3/uL (4.0-10.0)
[2022-05-04 10:01] LABS: ALBUMIN 4.2 GM/DL (3.2-5.2); ALT/SGPT 20 U/L (12-78); BILIRUBIN,TOTAL 0.5 MG/DL (0.2-1.0); BLOOD UREA NITROGEN 16 MG/DL (7-18); CALCIUM LEVEL 9.7 MG/DL (8.5-10.1); CARBON DIOXIDE LEVEL 28 MEQ/L (21-32); CHLORIDE LEVEL 107 MEQ/L (98-107); CHOLESTEROL LEVEL 91 MG/DL (<200); CHOLESTEROL RISK RATIO 2.757 (<5); CREATININE FOR GFR 1.21 MG/DL (0.70-1.30); GLOMERULAR FILTRATION RATE > 60.0 (>56); GLUCOSE, FASTING 118 MG/DL (70-100); HDL CHOLESTEROL 33 MG/DL (>40); LDL CHOLESTEROL 39 MG/DL (<100); NON-HDL-C 58 MG/DL; PROSTATIC SPECIFIC AG MONITOR 0.81 NG/ML (< 4.00); SODIUM LEVEL 137 MEQ/L (136-145); TOTAL PROTEIN 7.8 GM/DL (6.4-8.2); TRIGLYCERIDES LEVEL 93 MG/DL (<150)
[2022-05-04 10:13] LABS: HEMOGLOBIN A1c 7.1 %
[2022-05-04 10:27] LABS: TESTOSTERONE 352 NG/DL (241-827)
== END ==
LOC: M LAB 08:35
PROVIDERS: ATTEND Family Medicine
DX: I10 Essential (primary) hypertension (principal); R53.83 Other fatigue; E03.9 Hypothyroidism, unspecified

== ENCOUNTER → 2022-06-09 | Outpatient (CLI) | payer OTHER ==
[2022-06-09 11:55] LABS: BLOOD UREA NITROGEN 16 MG/DL (7-18); GLOMERULAR FILTRATION RATE > 60.0 (>56)
== END ==
LOC: M LAB 10:05
PROVIDERS: ATTEND Surgery Vascular Surgery
DX: I73.9 Peripheral vascular disease, unspecified (principal)

== ENCOUNTER → 2022-10-19 | Outpatient (CLI) | payer OTHER ==
[2022-10-19 08:57] LABS: HEMATOCRIT 47.6 % (42.0-52.0); HEMOGLOBIN 15.1 g/dl (13.5-17.5); MEAN CORPUSCULAR HEMOGLOBIN 29.4 pg (27.0-33.0); MEAN CORPUSCULAR HGB CONC 31.7 g/dl (32.0-36.5); MEAN CORPUSCULAR VOLUME 92.6 fl (80.0-96.0); PLATELET COUNT, AUTOMATED 195 10^3/uL (150-450); RED BLOOD COUNT 5.14 10^6/uL (4.30-6.10); WHITE BLOOD COUNT 6.2 10^3/uL (4.0-10.0)
[2022-10-19 09:23] LABS: ALBUMIN 4.1 G/DL (3.2-5.2); ALKALINE PHOSPHATASE 45 U/L (46-116); ALT/SGPT 13 U/L (7.0-40); AST/SGOT 11 U/L (<34); BILIRUBIN,TOTAL 0.6 MG/DL (0.3-1.2); BLOOD UREA NITROGEN 14 MG/DL (9-23); CALCIUM LEVEL 9.6 MG/DL (8.5-10.1); CARBON DIOXIDE LEVEL 27 MMOL/L (20-31); CHLORIDE LEVEL 106 MMOL/L (98-107); CHOLESTEROL LEVEL 127 MG/DL (<200); CHOLESTEROL RISK RATIO 4.03 (<5); CREATININE FOR GFR 1.24 MG/DL (0.70-1.30); GLOMERULAR FILTRATION RATE > 60.0 (>56); GLUCOSE, FASTING 132 MG/DL (60-100); HDL CHOLESTEROL 31.5 MG/DL (>40); LDL CHOLESTEROL 65.9 MG/DL (<100); NON-HDL-C 96 MG/DL; POTASSIUM SERUM 4.6 MMOL/L (3.5-5.1); SODIUM LEVEL 138 MMOL/L (136-145); TOTAL PROTEIN 7.3 G/DL (5.7-8.2); TRIGLYCERIDES LEVEL 148 MG/DL (<150)
[2022-10-19 09:24] LABS: TESTOSTERONE 652 NG/DL (241-827); THYROID STIMULATING HORMONE 0.921 uIU/ML (0.55-4.78)
[2022-10-19 09:27] LABS: HEMOGLOBIN A1c 6.8 % (4.0-6.0)
[2022-10-19 14:41] LABS: TOTAL 25(OH) VITAMIN D 21.3 NG/ML (20.0-100.0)
== END ==
LOC: M LAB 08:17
PROVIDERS: ATTEND Family Medicine
DX: I10 Essential (primary) hypertension (principal); R53.83 Other fatigue

== ENCOUNTER → 2023-04-11 | Outpatient (CLI) | payer OTHER | LOC: M SLEEP 20:00 | PROVIDERS: ATTEND Physician Assistant | DX: G47.33 Obstructive sleep apnea (adult) (pediatric) (principal) ==

== ENCOUNTER → 2023-11-09 | Outpatient (CLI) | payer MEDICARE ==
[2023-11-09 08:52] LABS: HEMATOCRIT 48.4 % (42.0-52.0); HEMOGLOBIN 15.7 g/dl (13.5-17.5); MEAN CORPUSCULAR HEMOGLOBIN 29.2 pg (27.0-33.0); MEAN CORPUSCULAR HGB CONC 32.4 g/dl (32.0-36.5); MEAN CORPUSCULAR VOLUME 90.1 fl (80.0-96.0); PLATELET COUNT, AUTOMATED 179 10^3/uL (150-450); RED BLOOD COUNT 5.37 10^6/uL (4.30-6.10); WHITE BLOOD COUNT 6.3 10^3/uL (4.0-10.0)
[2023-11-09 09:10] LABS: HEMOGLOBIN A1c 7.4 % (4.0-6.0)
[2023-11-09 09:24] LABS: CHOLESTEROL RISK RATIO 3.31 (<5); HDL CHOLESTEROL 29.6 MG/DL (>40); NON-HDL-C 68.4 MG/DL; PROSTATIC SPECIFIC AG MONITOR 0.39 NG/ML (< 4.00)
[2023-11-09 09:28] LABS: THYROID STIMULATING HORMONE 1.278 uIU/ML (0.55-4.78)
[2023-11-09 09:29] LABS: TOTAL 25(OH) VITAMIN D 27.5 NG/ML (20.0-100.0)
== END ==
LOC: M LAB 08:08
PROVIDERS: ATTEND Family Medicine
DX: I10 Essential (primary) hypertension (principal); E11.9 Type 2 diabetes mellitus without complications; R53.83 Other fatigue; E03.9 Hypothyroidism, unspecified; Z79.899 Other long term (current) drug therapy

== ENCOUNTER → 2024-02-20 | Outpatient (CLI) | payer MEDICARE ==
[~2024-02-20] MED LIST changes: -ROSU40TA4 PO; +ROSU40TA63 PO
[2024-02-20 09:18] LABS: HEMOGLOBIN A1c 7.2 % (4.0-6.0)
[2024-02-20 09:20] LABS: HEMATOCRIT 45.6 % (42.0-52.0); HEMOGLOBIN 15.1 g/dl (13.5-17.5); MEAN CORPUSCULAR HEMOGLOBIN 29.5 pg (27.0-33.0); MEAN CORPUSCULAR HGB CONC 33.1 g/dl (32.0-36.5); MEAN CORPUSCULAR VOLUME 89.1 fl (80.0-96.0); PLATELET COUNT, AUTOMATED 167 10^3/uL (150-450); RED BLOOD COUNT 5.12 10^6/uL (4.30-6.10); WHITE BLOOD COUNT 5.9 10^3/uL (4.0-10.0)
[2024-02-20 09:30] LABS: PROSTATIC SPECIFIC AG MONITOR 0.33 NG/ML (< 4.00)
[2024-02-20 09:34] LABS: ALBUMIN 4.1 G/DL (3.2-5.2); ALKALINE PHOSPHATASE 38 U/L (46-116); ALT/SGPT 19 U/L (7.0-40); AST/SGOT 11 U/L (<34); BILIRUBIN,TOTAL 0.7 MG/DL (0.3-1.2); BLOOD UREA NITROGEN 25 MG/DL (9-23); CALCIUM LEVEL 9.2 MG/DL (8.5-10.1); CARBON DIOXIDE LEVEL 27 MMOL/L (20-31); CHLORIDE LEVEL 107 MMOL/L (98-107); CHOLESTEROL LEVEL 106 MG/DL (<200); CHOLESTEROL RISK RATIO 3.74 (<5); CREATININE FOR GFR 1.19 MG/DL (0.70-1.30); GLOMERULAR FILTRATION RATE > 60.0 (>56); GLUCOSE, FASTING 147 MG/DL (60-100); HDL CHOLESTEROL 28.3 MG/DL (>40); LDL CHOLESTEROL 49.3 MG/DL (<100); NON-HDL-C 77.7 MG/DL; POTASSIUM SERUM 4.8 MMOL/L (3.5-5.1); SODIUM LEVEL 139 MMOL/L (136-145); THYROID STIMULATING HORMONE 1.064 uIU/ML (0.55-4.78); TOTAL PROTEIN 7.2 G/DL (5.7-8.2); TRIGLYCERIDES LEVEL 142 MG/DL (<150)
[2024-02-20 09:35] LABS: TESTOSTERONE 206 NG/DL (241-827)
[2024-02-20 09:36] LABS: TOTAL 25(OH) VITAMIN D 30.6 NG/ML (20.0-100.0)
== END ==
LOC: M LAB 08:12
PROVIDERS: ATTEND Family Medicine
DX: I10 Essential (primary) hypertension (principal); E11.9 Type 2 diabetes mellitus without complications; R53.83 Other fatigue; E03.9 Hypothyroidism, unspecified; N40.0 Benign prostatic hyperplasia without lower urinary tract symptoms; Z79.899 Other long term (current) drug therapy

== ENCOUNTER → 2024-05-12 | Outpatient (CLI) | payer MEDICARE | LOC: M PLAIMG 07:54 | PROVIDERS: ATTEND Physician Assistant | DX: I77.810 Thoracic aortic ectasia (principal); R00.1 Bradycardia, unspecified; I44.0 Atrioventricular block, first degree; I45.10 Unspecified right bundle-branch block ==